=== PATIENT | male | born 1975 | race American Indian/Alaskan Native ===

== ENCOUNTER 2017-01-28 13:49 | Emergency (ER) | payer MEDICARE ==
[2017-01-28 14:30] VITALS: BP 155/113
--- NOTE | 2017-01-28 14:56 | Emergency Department Report ---
ED Medical Clearance HPI - General Chief complaint: High BP Stated complaint: HIGH BP Time Seen by Provider: 01/28/17 14:56 Source: patient, RN notes reviewed Mode of arrival: Ambulatory Limitations: No Limitations - History of Present Illness Initial comments: This is a 41-year-old male. He is previously unknown to me. He is sent to the ER for medical clearance for hypertension. The patient has no headache, neck pain, chest pain, abdominal pain or shortness of breath. He was at an outpatient physician's office, Dr. Michel, was found to be hypertensive, given clonidine. He is sent to the ER for further evaluation and management. The patient had a blood pressure at triage of 186/129. It is now 155/113. Review of old medical records indicates the patient has a history of chronic hypertension. He indicates that he is taking metoprolol, 50 mg twice daily, lisinopril 40 mg once daily. He had laboratory studies done at this hospital in October which were unremarkable for renal function. He has no headache, neck pain, chest pain, abdominal pain or shortness of breath. He reports medication compliance, and he indicates that his primary care doctor is referring him to outpatient cardiology, Dr. Stein and arie -: Sudden Reason for Medical Clearance: medical condition Place: home Alledged Intoxication: No Compliant with Home Medications: Yes Traumatic Symptoms: denies traumatic injury Associated Symptoms: denies: chest pain, shortness of breath, palpitations, diaphoresis, denies other symptoms, confusion, cough, fever/chills, headaches, anorexia, malaise, nausea/vomiting, rash, seizure, syncope, weakness Treatments Prior to Arrival: none Home medications: Home Medications Medication Instructions Recorded Confirmed Last Taken Hydrochlorothiazide [HCTZ] 25 mg PO QDAY 06/30/16 06/30/16 06/30/16 06:00 Lisinopril [Zestril TAB] 40 mg PO QDAY 06/30/16 06/30/16 06/30/16 06:00 Previous Rx's Medication Instructions Recorded Last Taken Type Metoprolol [Lopressor TAB] 50 mg PO BID #60 tablet 02/18/15 06/30/16 06:00 Rx Ibuprofen [Motrin 800 MG tab] 800 mg PO Q8HR PRN #30 tablet 06/30/16 Unknown Rx Allergies/Adverse reactions: Allergies Allergy/AdvReac Type Severity Reaction Status Date / Time No Known Allergies Allergy Verified 06/30/16 07:50 ED Review of Systems ROS: Stated complaint: HIGH BP Other details as noted in HPI Constitutional: no symptoms reported Eyes: denies: eye discharge ENT: denies: epistaxis Respiratory: denies: shortness of breath Cardiovascular: denies: chest pain Gastrointestinal: denies: abdominal pain, nausea, diarrhea Genitourinary: denies: urgency, dysuria Musculoskeletal: denies: back pain, joint swelling, arthralgia Skin: denies: rash, lesions Neurological: denies: headache, weakness, paresthesias Psychiatric: denies: anxiety, depression Hematological/Lymphatic: denies: easy bleeding, easy bruising ED Past Medical Hx - Past Medical History Previous Medical History?: Yes Hx Hypertension: Yes Hx CVA: No Hx Heart Attack/AMI: No Hx Congestive Heart Failure: No Hx Diabetes: No Hx Deep Vein Thrombosis: No Hx Pulmonary Embolism: No Hx GERD: No Hx Liver Disease: No Hx Renal Disease: No Hx Sickle Cell Disease: No Hx Arthritis: No Hx Headaches / Migraines: No Hx Seizures: No Hx Kidney Stones: No Hx Psychiatric Treatment: No Hx Asthma: No Hx COPD: No Hx Tuberculosis: No Hx Dementia: No Hx HIV: No - Surgical History Past Surgical History?: Yes Hx Coronary Stent: No Hx Open Heart Surgery: No Hx Pacemaker: No Hx Internal Defibrillator: No Hx Cholecystectomy: No Hx Appendectomy: No Hx Breast Surgery: No Additional Surgical History: right leg/ Parrish in right leg. - Social History Smoking Status: Current Every Day Smoker Substance Use Type: None - Medications Home Medications: Home Medications Medication Instructions Recorded Confirmed Last Taken Type Metoprolol [Lopressor TAB] 50 mg PO BID #60 tablet 02/18/15 06/30/16 06/30/16 06 :00 Rx Hydrochlorothiazide [HCTZ] 25 mg PO QDAY 06/30/16 06/30/16 06/30/16 06:00 History Ibuprofen [Motrin 800 MG tab] 800 mg PO Q8HR PRN #30 tablet 06/30/16 Unknown Rx Lisinopril [Zestril TAB] 40 mg PO QDAY 06/30/16 06/30/16 06/30/16 06:00 History ED Physical Exam - General Limitations: No Limitations General appearance: alert, in no apparent distress - Head Head exam: Present: atraumatic, normocephalic - Eye Eye exam: Present: normal appearance, EOMI. Absent: nystagmus - ENT ENT exam: Present: normal exam, normal orophraynx, mucous membranes moist, normal external ear exam - Neck Neck exam: Present: normal inspection, full ROM. Absent: tenderness, meningismus - Respiratory Respiratory exam: Present: normal lung sounds bilaterally. Absent: respiratory distress, wheezes, rales, rhonchi, stridor, chest wall tenderness, accessory muscle use, decreased breath sounds, prolonged expiratory - Cardiovascular Cardiovascular Exam: Present: regular rate, normal rhythm, normal heart sounds. Absent: bradycardia, tachycardia, irregular rhythm, systolic murmur, diastolic murmur, rubs, gallop - GI/Abdominal GI/Abdominal exam: Present: soft, normal bowel sounds. Absent: distended, tenderness, guarding, rebound, rigid, pulsatile mass - Rectal Rectal exam: Present: deferred - Extremities Exam Extremities exam: Present: normal inspection, full ROM, normal capillary refill. Absent: tenderness, pedal edema, joint swelling, calf tenderness - Back Exam Back exam: Present: normal inspection, full ROM. Absent: tenderness, CVA tenderness (R), CVA tenderness (L), muscle spasm, paraspinal tenderness, vertebral tenderness - Neurological Exam Neurological exam: Present: alert, oriented X3, normal gait, other (Extraocular movements intact. Tongue midline. No facial droop. Facial sensation intact to light touch in the V1, V2, V3 distribution bilaterally. 5 and 5 strength in 4 extremities.. Sensation is intact to light touch in 4 extremities.). Absent : motor sensory deficit - Psychiatric Psychiatric exam: Present: normal affect, normal mood - Skin Skin exam: Present: warm, dry, intact, normal color. Absent: rash ED Course Vital Signs 01/28/17 01/28/17 14:24 14:29 Temperature 98.0 F Pulse Rate 18 L Respiratory 18 Rate Blood Pressure 186/129 Blood Pressure 155/113 [Right] O2 Sat by Pulse 97 Oximetry - Reevaluation(s) Reevaluation #1: 01/28/17 14:59 differential diagnosis: Hypertension, medical clearance, asymptomatic elevated blood pressure Assessment and plan: 41-year-old male with asymptomatic hypertension. He has recently had laboratory studies at this hospital in October which were unremarkable, his EKG is unremarkable, he has chronic hypertension which is poorly controlled. He already has referral to outpatient cardiology. As per the [employer] clinical policy in a symptomatic hypertension: Do asymptomatic patients with elevated blood pressures benefit from rapid lowering of their blood pressure? Level A recommendations. None specified. Level B recommendations. (1) Initiating treatment for asymptomatic hypertension in the ED is not necessary when patients have follow-up; (2) Rapidly lowering blood pressure in asymptomatic patients in the ED is unnecessary and may be harmful in some patients; (3) When ED treatment for asymptomatic hypertension is initiated, blood pressure management should attempt to gradually lower blood pressure and should not be expected to be normalized during the initial ED visit. Level C recommendations. None specified. At this point in time, patient does not require any further emergent intervention or treatment. He is going to follow up with outpatient cardiology. The importance of appropriate blood pressure medication compliance is emphasized. ED Medical Decision Making - Lab Data Vital Signs 01/28/17 01/28/17 14:24 14:29 Temperature 98.0 F Pulse Rate 18 L Respiratory 18 Rate Blood Pressure 186/129 Blood Pressure 155/113 [Right] O2 Sat by Pulse 97 Oximetry Documented heart rate of 18 likely an error. On physical exam after EKG, patient has a resting heart rate of at least 60. - EKG Data EKG shows normal: sinus rhythm, axis, intervals, QRS complexes, ST-T waves Rate: normal ED Disposition Clinical Impression: Hypertension Disposition: DISCHARGED TO HOME OR SELFCARE Is pt being admited?: No Does the pt Need Aspirin: No Condition: Stable Instructions: Hypertension (ED) Additional Instructions: Continue current outpatient medications. Follow up with outpatient health insurance specialist within the next week. It is very important to closely follow-up for better control of your blood pressure is poorly controlled hypertension/ elevated blood pressure can lead to stroke, heart attack, disability, , paralysis, permanent loss of quality of life. Next Return to the ER right away with fevers, chills, chest pain, shortness of breath , intractable nausea or vomiting, inability to tolerate liquid feeds, new, worsening or different symptoms. Referrals: PRIMARY MD RICH [Primary Care Provider] - 3-5 Days EDI STEIN MD [Staff Physician] - 3-5 Days
== END 2017-01-28 15:28 | disposition home or self-care (01) ==
LOC: ED 13:49
DX: I10 Essential (primary) hypertension (principal); F17.200 Nicotine dependence, unspecified, uncomplicated
CPT/HCPCS: 93005; 93010; 99282

== ENCOUNTER 2017-03-04 15:56 | Emergency (ER) | payer MEDICARE ==
[2017-03-04 17:06] LABS: Hematocrit 48.5 % (35.5-45.6); Hemoglobin 16.2 gm/dl (11.8-15.2); Mean Corpuscular HGB Conc 33 % (32-34); Mean Corpuscular Hemoglobin 29 pg (28-32); Mean Corpuscular Volume 88 fl (84-94); Platelet Count 225 K/mm3 (140-440); Red Blood Count 5.52 M/mm3 (3.65-5.03); Red Cell Distribution Width 14.5 % (13.2-15.2); White Blood Count 12.5 K/mm3 (4.5-11.0)
[2017-03-04 17:10] LABS: Anion Gap 22 mmol/L; BUN/Creatinine Ratio 15.55; Blood Urea Nitrogen 14 mg/dL (9-20); Calcium 9.4 mg/dL (8.4-10.2); Carbon Dioxide 25 mmol/L (22-30); Chloride 92.9 mmol/L (98-107); Glucose 130 mg/dL (75-100); Potassium 3.6 mmol/L (3.6-5.0); Sodium 136 mmol/L (137-145)
[2017-03-04 17:40] LABS: Bilirubin,Urine NEG (Negative); Blood,Urine NEG (Negative); Ketones,Urine 20 mg/dL (Negative); Leukocyte Esterase,Urine NEG (Negative); Mucus,Urine 3+ /HPF; Nitrite,Urine NEG (Negative)
[2017-03-04] MEDS ORDERED: NORMODYNE IV ONE (18:08)
[2017-03-04] MEDS ORDERED: MORPHINE IV ONE (18:08)
[2017-03-04] MEDS ORDERED: BENADRYL IV ONE (18:08)
[2017-03-04] MEDS ORDERED: REGLAN IV ONE (18:08)
[2017-03-04] MEDS ORDERED: APRESOLINE IV ONE (20:02)
--- NOTE | 2017-03-04 21:46 | Emergency Department Report ---
HPI - General Chief Complaint: High BP Time Seen by Provider: 03/04/17 17:40 - HPI HPI: The patient is a 41-year-old male whom presents for evaluation of headache. The patient reports headache since yesterday afternoon, >24 hours prior to my eval, 05/12 in severity, aching in quality, generalized, bandlike, exacerbated with bright lights. He shares that his blood pressure has also been significantly elevated and that he sometimes gets headaches with elevated blood pressure. He states that his headache is not the worse headache of his life, it is not thunderclap in quality, did not awaken from sleep, and is consistent with previous migraines. The patient denies fever, head injury, neck pain, neck stiffness, vision or hearing changes, smell or taste changes, paresthesias, facial drooping, slurred speech, seizure-like activity, urine or bowel incontinence or retention, or other focal neurological deficit. ED Past Medical Hx - Past Medical History Hx Hypertension: Yes Hx CVA: No Hx Heart Attack/AMI: No Hx Congestive Heart Failure: No Hx Diabetes: No Hx Deep Vein Thrombosis: No Hx Pulmonary Embolism: No Hx GERD: No Hx Liver Disease: No Hx Renal Disease: No Hx Sickle Cell Disease: No Hx Arthritis: No Hx Headaches / Migraines: No Hx Seizures: No Hx Kidney Stones: No Hx Psychiatric Treatment: No Hx Asthma: No Hx COPD: No Hx Tuberculosis: No Hx Dementia: No Hx HIV: No - Surgical History Hx Coronary Stent: No Hx Open Heart Surgery: No Hx Pacemaker: No Hx Internal Defibrillator: No Hx Cholecystectomy: No Hx Appendectomy: No Hx Breast Surgery: No Additional Surgical History: right leg/ Parrish in right leg. - Social History Smoking Status: Former Smoker Substance Use Type: None - Medications Home Medications: Home Medications Medication Instructions Recorded Confirmed Last Taken Type Ibuprofen [Motrin 800 MG tab] 800 mg PO Q8HR PRN #30 tablet 06/30/16 03/04/17 Rx Aspirin [Aspirin TAB] 325 mg PO PRN 03/04/17 03/04/17 03/04/17 History Butalb/Acetaminophen/Caffeine 1 cap PO Q6HR PRN #15 cap 03/04/17 Unknown Rx [Fioricet 50-300-40 mg CAP] Hydrochlorothiazide [HCTZ] 25 mg PO QDAY #30 tablet 03/04/17 Unknown Rx Lisinopril [Zestril TAB] 20 mg PO QDAY #30 tablet 03/04/17 Unknown Rx Lisinopril/Hydrochlorothiazide 1 tab PO QDAY 03/04/17 03/04/17 03/04/17 History [Zestoretic 20-12.5 mg] Metoprolol [Lopressor TAB] 50 mg PO BID #60 tablet 03/04/17 Unknown Rx Penicillin Vk [Veetids TAB] 250 mg PO Q6H 03/04/17 03/04/17 03/04/17 History ED Review of Systems ROS: Stated complaint: ELEVATED BP Other details as noted in HPI Constitutional: denies: fever ENT: denies: throat or neck pain Respiratory: denies: cough, shortness of breath Cardiovascular: denies: chest pain Endocrine: denies unexplained weight loss or gain Gastrointestinal: denies: abdominal pain, nausea Genitourinary: denies: dysuria Musculoskeletal: denies: leg swelling Skin: denies: rash Neurological: reports headache Hematological/Lymphatic: denies: easy bleeding or easy bruising Psych: denies sadness or hopelessness Physical Exam - Physical Exam Vital Signs: Vital Signs 03/04/17 03/04/17 03/04/17 16:11 18:00 18:31 Temperature 99.2 F Pulse Rate 107 H 89 89 Respiratory 18 16 Rate Blood Pressure 181/122 182/115 Blood Pressure 182/115 [Left] O2 Sat by Pulse 100 95 Oximetry 03/04/17 03/04/17 03/04/17 18:32 18:35 19:00 Temperature Pulse Rate 89 Respiratory 16 16 18 Rate Blood Pressure Blood Pressure 163/102 [Left] O2 Sat by Pulse 95 95 Oximetry Physical Exam: General: well-nourished, well-developed, no acute distress Head: Normocephalic, atraumatic Eyes: normal sclera, PERRL, EOM intact ENT: Mucous membranes are pink and moist Neck: trachea midline, neck supple, No neck stiffness, no cervical adenopathy Respiratory: Breath sounds equal bilaterally, no wheezing, rales, or rhonchi Cardio: S1 and S2 present, no murmurs, rubs, gallops, capillary refill is brisk Abdomen: Normoactive bowel sounds, soft abdomen, no rigidity, no guarding or rebound tenderness Chest WALL/Back: No tenderness to palpation of the chest wall, no CVA tenderness with percussion Musc: No pitting edema Skin: No rash Neuro: alert oriented x4, normal cognition, speech normal, no facial drooping, no uvula or tongue deviation on protrusion, no deficit with rotation of neck or shoulder shrug, no obvious gross motor deficit in the upper or lower extremities with flexion or extension at the shoulder, elbow, wrist, hip, knee, or ankle bilaterally, no obvious gross sensation deficit to crude touch or 2 pt discrimination, 2+ symmetric reflexes on DTR testing, no dysmetria, dysdiadochokinesia, no coordination deficit with [id number] or [id number] testing, romberg negative, patient able to to ambulate without abnormal gait Psych: Normal affect ED Course Vital Signs 03/04/17 03/04/17 03/04/17 16:11 18:00 18:31 Temperature 99.2 F Pulse Rate 107 H 89 89 Respiratory 18 16 Rate Blood Pressure 181/122 182/115 Blood Pressure 182/115 [Left] O2 Sat by Pulse 100 95 Oximetry 03/04/17 03/04/17 03/04/17 18:32 18:35 19:00 Temperature Pulse Rate 89 Respiratory 16 16 18 Rate Blood Pressure Blood Pressure 163/102 [Left] O2 Sat by Pulse 95 95 Oximetry ED Medical Decision Making - Lab Data Result diagrams: 03/04/17 16:34 03/04/17 16:34 - Medical Decision Making The patient was seen and examined by myself. The patient is placed on a cafeteria monitor and continuous pulse ox. On initial evaluation, the patient was found to be in no distress. As there are no neuro deficits or other findings on examination concerning for acute intracranial disease process, and as the patient states that symptoms are consistent with previous headaches, a CAT scan of the head will not be obtained at this time. IV access is established and the patient is given IV Reglan, Benadryl, and IV Toradol for headache. The patient is given IV labetalol and hydralazine for her elevated blood pressure. Lab results reveal elevated RBC, hemoglobin, and hematocrit, consistent with hemoconcentration and exam findings of dehydration, and otherwise labs were grossly unremarkable. The patient was reevaluated and reported that their symptoms were markedly improved. The patient is stable for discharge with outpatient follow-up. The patient is given follow-up and return instructions. The patient expressed understanding and agreed with the plan. The patient is discharged in stable condition. Critical care attestation.: If time is entered above; I have spent that time in minutes in the direct care of this critically ill patient, excluding procedure time. ED Disposition Clinical Impression: Hypertensive urgency, Dehydration Acute nonintractable headache Qualifiers: Headache type: tension-type Qualified Code(s): G44.209 - Tension-type headache , unspecified, not intractable Disposition: DISCHARGED TO HOME OR SELFCARE Is pt being admited?: No Does the pt Need Aspirin: No Condition: Stable Instructions: Hypertension (ED), Acute Headache (ED) Prescriptions: Butalb/Acetaminophen/Caffeine [Fioricet 50-300-40 mg CAP] 1 cap PO Q6HR PRN #15 cap PRN Reason: Headache Hydrochlorothiazide [HCTZ] 25 mg PO QDAY #30 tablet Lisinopril [Zestril TAB] 20 mg PO QDAY #30 tablet Metoprolol [Lopressor TAB] 50 mg PO BID #60 tablet Referrals: PRIMARY CAREMD [Primary Care Provider] - 3-5 Days Time of Disposition: 21:38
[2017-03-04 21:58] VITALS: BP 137/84
--- NOTE | 2017-03-05 10:33 | XRay Report ---
ROUTINE CHEST, TWO VIEWS: HISTORY: Hypertension. The trachea, heart, mediastinal contour, lung cordova and bony thorax are unremarkable. IMPRESSION: Unremarkable chest x-ray.
== END 2017-03-04 21:45 | disposition home or self-care (01) ==
LOC: ED 15:56
DX: I10 Essential (primary) hypertension (principal); E86.0 Dehydration; G44.209 Tension-type headache, unspecified, not intractable; Z87.891 Personal history of nicotine dependence; Z79.82 Long term (current) use of aspirin
CPT/HCPCS: 36415; 71020; 80048; 81001; 83735; 83880; 84484; 85027; 93005; 93010; 96374; 96375; 99284; J0360; J1200; J2270; J2765